=== PATIENT | female | born 1940 | race Caucasian/White ===

== ENCOUNTER 2016-03-17 11:39 | Emergency (ER) | payer OTHER ==
[~2016-03-17] VITALS: Ht 157.5 cm; Wt 76.4 kg
[~2016-03-17 11:39] MED LIST: ACCUPRIL40 MG PO; ALPRAZOLAM0.25 M2 PO; ASPIR 8181 M1 PO; CENTRUM COMPLE1 EACH PO; INDERAL60 MG PO; LEVOTHYROXINE100 MCG PO; LO-DOSE ASPIRIN81 M2 PO; NORVASC2.5 MG PO; PROPRANOLOL HC120 MG PO; QUINAPRIL HCL20 MG PO; SERTRALINE HCL50 MG PO; SYNTHROID100 MCG PO; TOVIAZ8 MG PO; TRAMADOL HCL50 MG PO; ZETIA10 MG PO; ZOLOFT50 MG PO
[2016-03-17] MEDS ORDERED: MOTRIN600 MG PO (15:31)
[2016-03-17 15:52] VITALS: BP 126/84
== END 2016-03-17 15:53 | disposition home or self-care (01) ==
LOC: EME 11:39
DX: S93.402A Sprain of unspecified ligament of left ankle, initial encounter (principal); X50.9XXA Other and unspecified overexertion or strenuous movements or postures, initial encounter
CPT/HCPCS: 73630; 99281; 99284

== ENCOUNTER → 2017-05-26 | Outpatient (CLI) | payer OTHER ==
[~2017-05-26] MED LIST changes: +MOTRIN600 MG PO
== END | disposition home or self-care (01) ==
LOC: NUC 09:00
DX: R25.1 Tremor, unspecified (principal)
CPT/HCPCS: 78607; A9584